=== PATIENT | male | born 1990 | race Hispanic/Latino ===

== ENCOUNTER 2016-10-11 14:45 | Emergency (ER) | payer BC ==
[2016-10-11 14:52] VITALS: O2SAT 99
--- NOTE | 2016-10-11 16:09 | ED PDOC ---
HPI: Chest Pain Time Seen by Provider: 10/11/16 15:35 Chief Complaint (Nursing): Chest Pain Chief Complaint (Provider): Palpiations History Per: Patient History/Exam Limitations: no limitations Onset/Duration Of Symptoms: Days (today) Current Symptoms Are (Timing): Still Present Severity: Moderate Quality: Pressure (experienced for a couple of days) Associated Symptoms: denies: Nausea, Dyspnea, Diaphoresis, Syncope, Other (no vomiting, diarryea, dizziness) Additional Complaint(s): Moises Elizabeth is a 25 year old male, with no pertinent past medical history, who presents to the ED on 10/11/16 for the evaluation of moderate palpitations that he has experienced since this morning. Associated feelings of constant chest pressure, felt over the past couple of days, also reported, though he denies shortness of breath, nausea, vomiting, diarrhea, extremity swelling, dizziness or syncope. Recent long distance travel (within past month) includes plane trips to both [place] and [place]. No familial history of cardiac issues or pulmonary embolism. Of note, patient does report having experienced a "panic attack" 1 month ago while on a crowded bus, characterized by acute shortness of breath. At that time he had presented for medical evaluation and was given Xanax which had reportedly resolved his symptoms. He had followed up with his PMD with no further issues and denies any acute stressors. He has also reportedly decreased his usual caffeine intake to 1 cup of coffee/day and denies having ingested any prior to arrival. He does report having taken an Excedrin this morning for a mild headache but oherwise denies recent alcohol/drug use. PMD: Dr. Goerge ([facility]) Past Medical History Reviewed: Historical Data, Nursing Documentation, Vital Signs Vital Signs: Last Vital Signs Temp 97.9 F 10/11/16 14:51 Pulse 85 10/11/16 17:21 Resp 20 10/11/16 14:51 BP 146/91 H 10/11/16 14:51 Pulse Ox 99 10/11/16 17:21 - Medical History PMH: No Chronic Diseases - Surgical History Surgical History: No Surg Hx - Family History Family History: States: No Known Family Hx - Social History Current smoker - smoking cessation education provided: No Alcohol: Occasional Drugs: Denies - Allergies Allergies/Adverse Reactions: Allergies Allergy/AdvReac Type Severity Reaction Status Date / Time No Known Allergies Allergy Verified 10/11/16 14:51 REGIS Risk Score for UA/NSTEMI - REGIS Risk Score Age > 64: NO 3 or more CAD Risk Factors: NO Known CAD (Stenosis greater than 50%): NO Aspirin use in past 7 days: NO Severe Angina: NO EKG ST changes greater than 0.5mm: NO Positive Cardiac Marker: NO REGIS Score: 0 Risk %: 5% Wells Criteria for PE - Wells Criteria for Pulmonary Embolism Clinical Signs and Symptoms of DVT: No P.E is #1 Diagnosis, or Equally Likely: No Heart Rate >100: No Immobilization at least 3 days;Surgery previous 4 weeks: No Previous, objectively diagnosed PE or DVT: No Hemoptysis: No Malignancy w/treatment within 6 months, or palliative: No Total Score: 0 Review of Systems ROS Statement: Except As Marked, All Systems Reviewed And Found Negative Cardiovascular: Positive for: Chest Pain (pressure (x a couple of days)), Palpitations (today). Negative for: Edema, Light Headedness (no syncope) Respiratory: Negative for: Shortness of Breath Gastrointestinal: Negative for: Vomiting, Diarrhea Neurological: Negative for: Dizziness Physical Exam - Reviewed Nursing Documentation Reviewed: Yes Vital Signs Reviewed: Yes - Physical Exam Appears: Positive for: Non-toxic, No Acute Distress Head Exam: Positive for: ATRAUMATIC, NORMOCEPHALIC Skin: Positive for: Normal Color, Warm, Dry Eye Exam: Positive for: Normal appearance, PERRL ENT: Positive for: Normal ENT Inspection Cardiovascular/Chest: Positive for: Regular Rate, Rhythm. Negative for: Edema, Murmur Respiratory: Positive for: Normal Breath Sounds. Negative for: Respiratory Distress Gastrointestinal/Abdominal: Positive for: Normal Exam, Soft. Negative for: Tenderness Back: Positive for: Normal Inspection Extremity: Positive for: Normal ROM (moving all extremities) Neurologic/Psych: Positive for: Alert, Oriented, Mood/Affect (calm) - Laboratory Results Result Diagrams: 10/11/16 16:10 10/11/16 16:10 - ECG ECG: Positive for: Interpreted By Me, Viewed By Me ECG Rhythm: Positive for: Normal ST Segment, Sinus Rhythm (with marked sinus arrhythmia), Right Bundle Branch Block (incomplete) Rate: 85 O2 Sat by Pulse Oximetry: 99 (RA) Pulse Ox Interpretation: Normal - Radiology X-Ray: Interpreted by Me, Viewed By Me X-Ray Interpretation: No Acute Disease Medical Decision Making Medical Decision Makin:35 Initial Impression: chest pressure, palpiations Differential diagnoses include but are not limited to anxiety, pulmonary embolism, and (less likely) ACS/arrhythmia Initial Plan: * EKG * Labs * Troponin I * D-Dimer * Reevaluation EKG shows NSR at 85bpm with marked sinus arrhythmia and an incomplete RBBB. Normal ST segments. Scribe Attestation: Documented by Pebbles Rogers, acting as a scribe for Mindi Sexton MD. Provider Scribe Attestation: All medical record entries made by the Scribe were at my direction and personally dictated by me. I have reviewed the chart and agree that the record accurately reflects my personal performance of the history, physical exam, medical decision making, and the department course for this patient. I have also personally directed, reviewed, and agree with the discharge instructions and disposition. Disposition - Clinical Impression Clinical Impression: Anxiety, Palpitations - Patient ED Disposition Is Patient to be Admitted: No Doctor Will See Patient In The: Office Counseled Patient/Family Regarding: Studies Performed, Diagnosis, Need For Followup - Disposition Referrals: [facility] [Outside] Disposition: Routine/Home Disposition Time: 18:11 Condition: GOOD Additional Instructions: Follow up with you PCP in 2-3 days. Instructions: Palpitations (ED), Anxiety (ED)
[2016-10-11 16:22] LABS: BASO % 0.4 % (0.0-2.0); EOS # 0.1 K/uL (0.0-0.7); EOS % 1.8 % (0.0-4.0); HEMATOCRIT 43.4 % (35.0-51.0); LYMPH # 1.1 K/uL (1.0-4.3); LYMPH % 19.6 % (20.0-40.0); MEAN CELL VOLUME 89.6 fl (80.0-94.0); MEAN CORPUSCULAR HGB CONC 33.4 g/dL (33.0-37.0); MEAN PLATELET VOLUME 9.1 fl (7.2-11.7); MONO # 0.5 K/uL (0.0-0.8); MONO % 8.8 % (0.0-10.0); NEUT # 3.8 K/uL (1.8-7.0); NEUT % 69.4 % (50.0-75.0); NRBC % 0.1 % (0.0-0.0); RED CELL DISTRIBUTION WIDTH 12.7 % (11.5-14.5); WHITE BLOOD COUNT 5.5 K/uL (4.8-10.8)
[2016-10-11 16:36] LABS: BLOOD UREA NITROGEN 14 mg/dl (9-20); CALCIUM 9.1 mg/dL (8.4-10.2); CARBON DIOXIDE 26 mmol/L (22-30); CHLORIDE 105 mmol/L (98-107); GFR AFRICAN-AMERICAN > 60; GLUCOSE,RANDOM 114 mg/dL (75-110); POTASSIUM 3.9 MMOL/L (3.6-5.0); SODIUM 144 mmol/l (132-148)
[2016-10-11 18:32] VITALS: BP 124/68; PULSE 69; RESP 16; TEMP 98
--- NOTE | 2016-10-12 06:43 | RAD ---
HISTORY: chest pain COMPARISON: No prior. TECHNIQUE: Chest PA and lateral FINDINGS: LUNGS: No active pulmonary disease. PLEURA: No significant pleural effusion identified. No pneumothorax apparent. CARDIOVASCULAR: Normal. OSSEOUS STRUCTURES: No significant abnormalities. VISUALIZED UPPER ABDOMEN: Normal. OTHER FINDINGS: None. IMPRESSION: No active disease.
--- NOTE | 2016-10-12 08:19 | CARD ---
APPROVED REPORT EKG Measurement Heart [id number] <Conclusion> Sinus rhythm with marked sinus arrhythmia Possible Left atrial enlargement Incomplete right bundle branch block Borderline ECG
== END 2016-10-11 18:32 | disposition home or self-care (01) ==
LOC: H.ER 14:45
DX: R00.2 Palpitations (principal); F41.9 Anxiety disorder, unspecified; R07.9 Chest pain, unspecified